=== PATIENT | male | born 1950 | race Caucasian/White ===

== ENCOUNTER 2017-04-24 05:42 | Emergency (ER) | payer MEDICARE ==
[~2017-04-24] VITALS: Ht 185.4 cm; Wt 93.6 kg
[~2017-04-24 05:42] MED LIST: B-COTAB41 PO; COUM5TAB PO; DIAZ10TA PO; FENO145T2 PO; FERR1TAB7 PO; OXYC1SOL5 PO; PREG75 PO; Z.0.COMMODE-3:1; Z.0.CPM; Z.0.WALKERFRONT
[2017-04-24 05:48] VITALS: BP 210/105; PULSE 96; RESP 16; TEMP 97.7; O2SAT 97
[2017-04-24] MEDS ORDERED: PERC5TAB12 PO (06:03)
[2017-04-24] MEDS ORDERED: DIAZ10TA PO (06:03)
[2017-04-24] MEDS ORDERED: LYRI50CA PO (06:03)
[2017-04-24] MEDS ORDERED: KETOROLAC TROMETHAMINE 60 MG/2 ML (IM) VIAL IM ONE (06:15)
[2017-04-24] MEDS ORDERED: HYDROmorphone HCL PF 1 MG/ML VIAL IM ONE (06:15)
--- NOTE | 2017-04-24 06:19 | PD ---
HPI Chief Complaint: Pain: Acute or Chronic Time Seen by Provider: 05:54 Travel History International Travel<30 days: No Contact w/Intl Traveler<30days: No Traveled to known affect area: No History of Present Illness HPI 66-year-old man, presents emergent from complaining of chronic chest pain. He states he had an epicardial ablation with chest tubes and 2006 and has had chronic neuropathic chest pain since. He's had a stimulator placed, he said other procedures, he is on workup Percocet and diazepam. He states he does well normally but was doing some lifting the past couple days and has had been having worsening severe pain. History Past Medical History Narrative Medical History of Lorenzo spivey, status post ablation Chronic neuropathic chest pain Tetanus Vaccination: < 5 Years Influenza Vaccination: No Social History Alcohol Use: No Tobacco Use: No Allergies-Medications (Allergen,Severity, Reaction): Coded Allergies: No Known Allergies (Unverified , 04/24/17) Reported Meds & Prescriptions Reported Meds & Active Scripts Active Reported Diazepam 10 Mg Tab 10 Mg PO DAILY Percocet (Oxycodone-Acetaminophen) 5-325 mg Tab 1 Tab PO Q6H PRN Lyrica (Pregabalin) 50 Mg Cap 50 Mg PO TID Review of Systems Except as stated in HPI: all other systems reviewed are Neg Physical Exam Narrative GENERAL: Well appearing, no acute distress. SKIN: Focused skin assessment warm/dry. CARDIOVASCULAR: Regular rate and rhythm. No murmur appreciated. RESPIRATORY: No accessory muscle use. Clear to auscultation. Breath sounds equal bilaterally. GASTROINTESTINAL: Abdomen soft, non-tender, nondistended. Hepatic and splenic margins not palpable. MUSCULOSKELETAL: No obvious deformities. No Edema. NEUROLOGICAL: Awake and alert. No obvious cranial nerve deficits. Motor grossly within normal limits. Normal speech. PSYCHIATRIC: Appropriate mood and affect; insight and judgment normal. Data Data Last Documented VS Vital Signs Date Time Temp Pulse Resp B/P Pulse Ox O2 Delivery O2 Flow Rate FiO2 04/24/17 05:58 18 04/24/17 05:48 97.7 96 210/105 97 Room Air Orders Ketorolac Inj (Toradol Inj) (04/24/17 06:15) Hydromorphone Pf Inj (Dilaudid Pf Inj) (04/24/17 06:15) MDM Medical Decision Making Medical Screen Exam Complete: Yes Emergency Medical Condition: Yes Differential Diagnosis Chronic neuropathic pain, new acute etiology Narrative Course Medical decision making 58-year-old male chronic neuropathic pain. Looks well. We'll give single dose parenteral hydromorphone and ketorolac. Diagnosis Primary Impression: Chronic chest pain Patient Instructions: General Instructions Additional Instructions: Follow-up with your primary doctor today. Return to the emergency department for any new or worsening symptoms. Med/Other Pt SpecificInfo: No Change to Meds Disposition: 01 DISCHARGE HOME Condition: Stable Alex Rivera MD Apr 24, 2017 06:19
[2017-04-24 07:01] VITALS: BP 177/89; PULSE 93; RESP 18; O2SAT 95
== END 2017-04-24 07:06 | disposition home or self-care (01) ==
LOC: NEPC 05:42
DX: R07.9 Chest pain, unspecified (principal); G89.29 Other chronic pain; G62.9 Polyneuropathy, unspecified; I48.91 Unspecified atrial fibrillation; Z79.899 Other long term (current) drug therapy
CPT/HCPCS: 96372; 99284; J1170; J1885

== ENCOUNTER 2017-04-24 17:15 | Emergency (ER) | payer MEDICARE ==
[~2017-04-24 17:15] MED LIST changes: +LYRI50CA PO; +PERC5TAB12 PO
--- NOTE | 2017-04-24 17:58 | PD ---
Physical Exam Time Seen by Provider: 17:56 Narrative 66 y/o male with chronic chest pain, worse today. Seen here earlier today. Uses lyrica but not helping as much as usual. Vital signs reviewed. Seen at triage desk. Awaiting bed placement. [facility] Medical Record Reviewed: Yes Supervised Visit with GAVIOTA: Jose Mendoza Apr 24, 2017 17:58
[2017-04-24 19:20] VITALS: BP 165/70; PULSE 88; RESP 20; TEMP 98; O2SAT 98
--- NOTE | 2017-04-24 22:39 | PD ---
HPI Chief Complaint: Pain: Acute or Chronic Time Seen by Provider: 22:22 Travel History International Travel<30 days: No Contact w/Intl Traveler<30days: No Traveled to known affect area: No History of Present Illness HPI 66-year-old male here for evaluation of acute on chronic chest pain. Patient had an epicardial ablation for atrial fibrillation with chest tubes in 2005 and has had chronic neuropathic chest pain since. He was seen in the emergency department earlier this morning complaining of right-sided chest pain. He was treated with Dilaudid and Toradol and discharged home. He went home and went to sleep, however pain returned at around 2:00 PM. He tried taking his Percocet and Lyrica at home, however he has not had any relief. Pain has been more severe than usual over the past couple of days. He denies trauma. No known history of coronary artery disease. No fevers or chills. He has had a slight nonproductive cough. PFSH Past Medical History Arthritis: Yes Asthma: No Autoimmune Disease: No Blood Disorders: No Heart Rhythm Problems: Yes (ATRIAL FIBRILLATION) Cancer: Yes (SKIN CANCER) Cardiovascular Problems: Yes (HX A FIB) High Cholesterol: Yes Chemotherapy: No Chest Pain: No Congestive Heart Failure: No COPD: No Cerebrovascular Accident: No Diabetes: No Diminished Hearing: No Endocrine: No GERD: No Glaucoma: No Genitourinary: No Headaches: Yes Hepatitis: No Hiatal Hernia: No Hypertension: Yes (PAST HX NO MEDS) Immune Disorder: No Implanted Vascular Access Dvce: Yes Kidney Stones: No Musculoskeletal: Yes (ALTAF KNEES, HANDS ARTHRITIS; LEFT SHOULDER DISCOMFORT) Neurologic: Yes (NERVE PAIN RIBS, AXILLA, AND ELBOWS BILATERAL POST ABLATION) Psychiatric: No Respiratory: Yes (BILATERAL LUNG COLLAPSE AFTER ABLATION) Myocardial Infarction: No Radiation Therapy: No Renal Failure: No Seizures: No Sickle Cell Disease: No Sleep Apnea: No Thyroid Disease: No Ulcer: No Tetanus Vaccination: > 5 Years Influenza Vaccination: No Past Surgical History Abdominal Surgery: Yes (IMPLANTED GENERATOR RIGHT WAIST FOR PAIN CONTROL, WIRES IN CHEST) AICD: No Body Medical Devices: MESH, ABDOMINAL GENERATOR, WIRES TO BOTH SIDES OF CHEST Cardiac Surgery: Yes (ATRIAL FIBRILLATION ABLATION 2005) Ear Surgery: No Endocrine Surgery: No Eye Surgery: No Genitourinary Surgery: No Gynecologic Surgery: No Joint Replacement: Yes (02/23/15 RIGHT TOTAL KNEE) Oral Surgery: No Pacemaker: No Thoracic Surgery: No Other Surgery: Yes (02/23/15 RIGHT TOTAL KNEE) Social History Alcohol Use: No Tobacco Use: No Substance Use: No Allergies-Medications (Allergen,Severity, Reaction): Coded Allergies: No Known Allergies (Unverified , 04/24/17) Reported Meds & Prescriptions Reported Meds & Active Scripts Active Reported Diazepam 10 Mg Tab 10 Mg PO DAILY Percocet (Oxycodone-Acetaminophen) 5-325 mg Tab 1 Tab PO Q6H PRN Lyrica (Pregabalin) 50 Mg Cap 50 Mg PO TID Review of Systems Except as stated in HPI: all other systems reviewed are Neg Physical Exam Narrative GENERAL: Well-developed, well-nourished, no apparent distress. SKIN: Focused skin assessment warm/dry. HEAD: Atraumatic. Normocephalic. EYES: Pupils equal and round. No scleral icterus. No injection or drainage. ENT: Mucous membranes pink and moist. NECK: Trachea midline. No JVD. CARDIOVASCULAR: Regular rate and rhythm. RESPIRATORY: No accessory muscle use. Clear to auscultation. Breath sounds equal bilaterally. GASTROINTESTINAL: Abdomen soft, non-tender, nondistended. MUSCULOSKELETAL: No obvious deformities. No clubbing. No cyanosis. No edema. Mild right-sided chest wall tenderness without step-off, without crepitus, without paradoxical chest wall movement. NEUROLOGICAL: Awake and alert. No obvious cranial nerve deficits. Motor grossly within normal limits. Normal speech. PSYCHIATRIC: Appropriate mood and affect; insight and judgment normal. Data Data Last Documented VS Vital Signs Date Time Temp Pulse Resp B/P Pulse Ox O2 Delivery O2 Flow Rate FiO2 04/24/17 23:26 101 16 157/60 93 Room Air 04/24/17 19:20 98.0 Orders Electrocardiogram (04/24/17 22:34) Basic Metabolic Panel (Bmp) (04/24/17 22:34) Ckmb (Isoenzyme) Profile (04/24/17 22:34) Complete Blood Count With Diff (04/24/17 22:34) Prothrombin Time / Inr (Pt) (04/24/17 22:34) Act Partial Throm Time (Ptt) (04/24/17 22:34) Troponin I (04/24/17 22:34) Chest, Single Ap (04/24/17 22:34) Ecg Monitoring (04/24/17 22:34) Iv Access Insert/Monitor (04/24/17 22:34) Oximetry (04/24/17 22:34) Sodium Chloride 0.9% Flush (Ns Flush) (04/24/17 22:45) Ketorolac Inj (Toradol Inj) (04/24/17 22:45) Hydromorphone Pf Inj (Dilaudid Pf Inj) (04/24/17 22:45) Ct Pulmonary Angiogram (04/24/17 23:14) Labs Laboratory Tests Test 04/24/17 04/24/17 22:50 23:58 White Blood Count 12.1 TH/MM3 Red Blood Count 5.00 MIL/MM3 Hemoglobin 15.1 GM/DL Hematocrit 44.7 % Mean Corpuscular Volume 89.4 FL Mean Corpuscular Hemoglobin 30.3 PG Mean Corpuscular Hemoglobin 33.8 % Concent Red Cell Distribution Width 13.9 % Platelet Count 228 TH/MM3 Mean Platelet Volume 7.8 FL Neutrophils (%) (Auto) 89.7 % Lymphocytes (%) (Auto) 3.7 % Monocytes (%) (Auto) 6.4 % Eosinophils (%) (Auto) 0.0 % Basophils (%) (Auto) 0.2 % Neutrophils # (Auto) 10.8 TH/MM3 Lymphocytes # (Auto) 0.4 TH/MM3 Monocytes # (Auto) 0.8 TH/MM3 Eosinophils # (Auto) 0.0 TH/MM3 Basophils # (Auto) 0.0 TH/MM3 CBC Comment DIFF FINAL Differential Comment Prothrombin Time 11.8 SEC Prothromb Time International 1.1 RATIO Ratio Activated Partial 27.5 SEC Thromboplast Time Sodium Level 139 MEQ/L Potassium Level 4.2 MEQ/L Chloride Level 104 MEQ/L Carbon Dioxide Level 26.2 MEQ/L Anion Gap 9 MEQ/L Blood Urea Nitrogen 11 MG/DL Creatinine 0.93 MG/DL Estimat Glomerular Filtration 81 ML/MIN Rate Random Glucose 131 MG/DL Calcium Level 8.7 MG/DL Total Creatine Kinase 86 U/L Troponin I LESS THAN 0.02 NG/ML MDM Medical Decision Making Medical Screen Exam Complete: Yes Emergency Medical Condition: Yes Medical Record Reviewed: Yes Interpretation(s) EKG: Sinus, rate 106, leftward axis, incomplete RBBB, no acute ischemic abnormality. Differential Diagnosis Chronic neuropathic pain, ACS, pneumothorax, peritonitis, PE, pneumonia, pleurisy Narrative Course Initial vital signs show heart rate 80, blood pressure 165/70, pulse ox 98% on room air, oral temp of 98F. CBC shows WBC 12.1, hemoglobin 15.1, hematocrit 44.3, platelets 228, neutrophils 89%. BMP Cardiac enzymes Chest x-ray: Small right effusion suspected with basilar airspace disease and atelectasis. CT pulmonary angiogram: At approximately 1:00 AM at the end of my shift the patient was signed out to Dr. Rivera to follow-up with chemistry, cardiac enzymes, CT pulmonary angiogram, and formulate a disposition. At time of signout the patient reports feeling much improved. Jay Horan MD Apr 24, 2017 22:39
[2017-04-24] MEDS ORDERED: HYDROmorphone HCL PF 1 MG/ML VIAL IV PUSH ONE (22:45)
[2017-04-24] MEDS ORDERED: KETOROLAC TROMETHAMINE 30 MG/ML (IVP) VIAL IV PUSH ONE (22:45)
[2017-04-24] MEDS ORDERED: SODIUM CHLORIDE 0.9% FLUSH 10 ML FLUSH IVF PRN (22:45)
[2017-04-24 22:54] VITALS: BP 178/91; PULSE 105; RESP 16; O2SAT 95
[2017-04-24 23:05] LABS: AUTOMATED NEUTROPHIL # 10.8 TH/MM3 (1.8-7.7); BASOPHIL % 0.2 % (0.0-2.0); HEMATOCRIT 44.7 % (39.0-51.0); HEMO FLAGS DIFF FINAL; LYMPH % 3.7 % (9.0-44.0); LYMPHOCYTE # 0.4 TH/MM3 (1.0-4.8); MEAN CELL VOLUME 89.4 FL (80.0-100.0); MEAN CORPUSCULAR HEMOGLOBIN 30.3 PG (27.0-34.0); MEAN CORPUSCULAR HGB CONC 33.8 % (32.0-36.0); MONO % 6.4 % (0.0-8.0); NEUT % 89.7 % (16.0-70.0); PLATELET COUNT 228 TH/MM3 (150-450); RED CELL DISTRIBUTION WIDTH 13.9 % (11.6-17.2); WHITE BLOOD COUNT 12.1 TH/MM3 (4.0-11.0)
--- NOTE | 2017-04-24 23:10 | RADRPT ---
EXAM DATE/TIME: 04/24/2017 22:41 [facility] COMPARISON: No previous studies available for comparison. INDICATIONS : Patient has had chest pain since this morning. MEDICAL HISTORY : None. SURGICAL HISTORY : Ablation. ENCOUNTER: Initial ACUITY: 1 day PAIN SCORE: 0/10 LOCATION: Bilateral chest FINDINGS: There are atelectatic changes at the lung bases, and blunting of the right lateral costophrenic angle can be seen with a small effusion. Cardiomegaly is present. Mild basilar airspace disease suspected. Degenerative changes of the spine. CONCLUSION: Small right effusion suspected with basilar airspace disease and atelectasis. Sohail Cordon MD on April 24, 2017 at 23:08 Board Certified Radiologist. This report was verified electronically.
[2017-04-24 23:20] LABS: APTT (PATIENT) 27.5 SEC (24.3-30.1); INTERNATIONAL NORMALIZED RATIO 1.1 RATIO; PROTHROMBIN TIME - PATIENT 11.8 SEC (9.8-11.6)
[2017-04-24 23:26] VITALS: BP 157/60; PULSE 101; RESP 16; O2SAT 93
[2017-04-25 01:02] LABS: ANION GAP 9 MEQ/L (5-15); BICARBONATE 26.2 MEQ/L (21.0-32.0); BLOOD UREA NITROGEN 11 MG/DL (7-18); CHLORIDE 104 MEQ/L (98-107); GLOMERULAR FILTRATION RATE 81 ML/MIN (>89); POTASSIUM 4.2 MEQ/L (3.5-5.1); SODIUM (NA) 139 MEQ/L (136-145)
[2017-04-25 01:05] LABS: CREATINE KINASE 86 U/L (39-308)
[2017-04-25 01:26] VITALS: BP 135/82; PULSE 98; RESP 16; O2SAT 94
[2017-04-25] MEDS ORDERED: IOHEXOL 350 MG/ML 10 ML VIAL (for RAD DIAG) IV ONE (01:36)
--- NOTE | 2017-04-25 01:54 | RADRPT ---
EXAM DATE/TIME: 04/25/2017 01:29 [facility] COMPARISON: CHEST SINGLE AP, April 24, 2017, 22:41. INDICATIONS : Chest pain. IV CONTRAST: 75 cc Omnipaque 350 (iohexol) IV RADIATION DOSE: 12.04 CTDIvol (mGy) MEDICAL HISTORY : Hypertension. SURGICAL HISTORY : None. ENCOUNTER: Initial ACUITY: 1 day PAIN SCALE: 9/10 LOCATION: chest TECHNIQUE: Volumetric scanning of the chest was performed using a pulmonary embolism protocol MIP images were re constructed. Using automated exposure control and adjustment of the mA and/or kV according to patien t size, radiation dose was kept as low as reasonably achievable to obtain optimal diagnostic quality images. DICOM format image data is available electronically for review and comparison. Follow-up recommendations for incidentally detected pulmonary nodules are based at a minimum on nodul e size and patient risk factors according to Fleischner Society Guidelines. FINDINGS: There is compressive atelectasis both lung bases right greater than left. Between the left third and fourth rib laterally there is lateral herniation of the lung identified. Similar but slightly smaller focus on the right seen best on axial image 55. There is also focal herniation between the right fou rth and fifth ribs laterally on axial image 68. There are no effusions. There is no adenopathy. There is no evidence for pulmonary embolism. Coronary artery calcification is noted. mild CONCLUSION: 1. No evidence for pulmonary embolism. 2. The lung volumes are diminished with ilateral atelectatic changes right greater than left. 3. Small areas of herniated lung seen between the third and fourth ribs on the left and right as well as the fourth and fifth ribs on the right. Sohail Cordon MD on April 25, 2017 at 1:49 Board Certified Radiologist. This report was verified electronically.
--- NOTE | 2017-04-25 02:18 | PD ---
Data Data Last Documented VS Vital Signs Date Time Temp Pulse Resp B/P Pulse Ox O2 Delivery O2 Flow Rate FiO2 04/25/17 01:26 98 16 135/82 94 Room Air 04/24/17 19:20 98.0 Orders Electrocardiogram (04/24/17 22:34) Basic Metabolic Panel (Bmp) (04/24/17 22:34) Ckmb (Isoenzyme) Profile (04/24/17 22:34) Complete Blood Count With Diff (04/24/17 22:34) Prothrombin Time / Inr (Pt) (04/24/17 22:34) Act Partial Throm Time (Ptt) (04/24/17 22:34) Troponin I (04/24/17 22:34) Chest, Single Ap (04/24/17 22:34) Ecg Monitoring (04/24/17 22:34) Iv Access Insert/Monitor (04/24/17 22:34) Oximetry (04/24/17 22:34) Sodium Chloride 0.9% Flush (Ns Flush) (04/24/17 22:45) Ketorolac Inj (Toradol Inj) (04/24/17 22:45) Hydromorphone Pf Inj (Dilaudid Pf Inj) (04/24/17 22:45) Ct Pulmonary Angiogram (04/24/17 23:14) Iohexol 350 Inj (Omnipaque 350 Inj) (04/25/17 01:36) Labs Laboratory Tests Test 04/24/17 04/24/17 22:50 23:58 White Blood Count 12.1 TH/MM3 Red Blood Count 5.00 MIL/MM3 Hemoglobin 15.1 GM/DL Hematocrit 44.7 % Mean Corpuscular Volume 89.4 FL Mean Corpuscular Hemoglobin 30.3 PG Mean Corpuscular Hemoglobin 33.8 % Concent Red Cell Distribution Width 13.9 % Platelet Count 228 TH/MM3 Mean Platelet Volume 7.8 FL Neutrophils (%) (Auto) 89.7 % Lymphocytes (%) (Auto) 3.7 % Monocytes (%) (Auto) 6.4 % Eosinophils (%) (Auto) 0.0 % Basophils (%) (Auto) 0.2 % Neutrophils # (Auto) 10.8 TH/MM3 Lymphocytes # (Auto) 0.4 TH/MM3 Monocytes # (Auto) 0.8 TH/MM3 Eosinophils # (Auto) 0.0 TH/MM3 Basophils # (Auto) 0.0 TH/MM3 CBC Comment DIFF FINAL Differential Comment Prothrombin Time 11.8 SEC Prothromb Time International 1.1 RATIO Ratio Activated Partial 27.5 SEC Thromboplast Time Sodium Level 139 MEQ/L Potassium Level 4.2 MEQ/L Chloride Level 104 MEQ/L Carbon Dioxide Level 26.2 MEQ/L Anion Gap 9 MEQ/L Blood Urea Nitrogen 11 MG/DL Creatinine 0.93 MG/DL Estimat Glomerular Filtration 81 ML/MIN Rate Random Glucose 131 MG/DL Calcium Level 8.7 MG/DL Total Creatine Kinase 86 U/L Troponin I LESS THAN 0.02 NG/ML MDM Supervised Visit with GAVIOTA: Yes Interpretation(s) LABS: CBC remarkable for mild leukocytosis. CMP is unremarkable Troponin negative Coags are unremarkable CTA: No PE. Lung volumes are diminished. Bilateral atelectatic changes right greater than left. Small areas of her herniated long-acting between the third and fourth ribs on the left and right as well as the fourth and fifth ribs on the right. Chest x-ray: Small right effusion suspected with basilar airspace disease and atelectasis. Narrative Course Is a 66-year-old male chronic neuropathic chest pain signed out to me to follow- up the results of CT of the chest. She did the chest does not show any PE. He' s got some areas of herniated long. Is pain-free now. Recommend outpatient follow-up. Diagnosis Primary Impression: Chronic chest pain Additional Instruction: Follow-up with her primary doctor tomorrow. Med/Other Pt SpecificInfo: No Change to Meds Disposition: 01 DISCHARGE HOME Condition: Alex Tan MD Apr 25, 2017 02:18
--- NOTE | 2017-04-26 10:57 | EKG ---
Date Performed: 04/24/2017 Time Performed: 22:41:13 PTAGE: 66 years EKG: SINUS TACHYCARDIA POSSIBLE LEFT ATRIAL ENLARGEMENT BORDERLINE LEFT AXIS DEVIATION INCOMPLET E RIGHT BUNDLE BRANCH BLOCK POSSIBLE LEFT VENTRICULAR HYPERTROPHY NONSPECIFIC T-WAVE ABNORMALITY ABNO RMAL ECG PREVIOUS TRACING : 07/11/2010 11.43 DOCTOR: Alex Ruffin Interpretating Date/Time 04/26/2017 10:53:49
== END 2017-04-25 02:43 | disposition home or self-care (01) ==
LOC: NEPD 17:15
DX: R07.9 Chest pain, unspecified (principal); G89.29 Other chronic pain; G62.9 Polyneuropathy, unspecified; R00.0 Tachycardia, unspecified; R94.31 Abnormal electrocardiogram [ECG] [EKG]; D72.829 Elevated white blood cell count, unspecified; I45.10 Unspecified right bundle-branch block; I48.91 Unspecified atrial fibrillation; I10 Essential (primary) hypertension
CPT/HCPCS: 71010; 71275; 80048; 82550; 84484; 85025; 85610; 85730; 93005; 96374; 96375; 99285; J1170; J1885; Q9967